=== PATIENT | female | born 1990 | race Two or more races ===

== ENCOUNTER 2017-02-05 14:29 | Emergency (ER) | payer OTHER ==
[~2017-02-05] VITALS: Ht 170.2 cm; Wt 90.7 kg
--- NOTE | ~2017-02-05 | CT2 ---
[facility] A Service of [facility] & [facility] / [facility] RADIOLOGY TEXT RESULTS PATIENT: NICOLE CLANCY LOCATION: SED : 88 UNIT #: [id number] AGE: [address]: COLUMBA KOROMA SEX: F ORDER DR: [id number] [address] [id number] MR#: [id number] Acc #: [id number] NAME: NICOLE CLANCY. : 1990 SEX: F STUDY DATE/TIME: 02/05/2017 15:59 UNIT: SED ROOM: STUDY DESCRIPTION: CT Abd and Pelv W Cont Attending Physician: (Marley) Columba Koroma Ordering Physician: Rose) Columba Koroma Primary Care Physician: No Primary Care Physician MEDICAL IMAGING REPORT This report is preliminary unless electronic signature is present. EXAM CT abdomen and pelvis with IV contrast. COMPARISON April 08, 2010 INDICATIONS 26-year-old female with diffuse lower abdominal pain and nausea for [address] imaging of the abdomen and pelvis was performed after IV administration of 100 mL of Isovue-370. Coronal and sagittal reformats were constructed. This CT exam was performed with one or more of the following radiation dose reduction techniques: automatic exposure control, adjustment of mA and/or kV according to patient size, and iterative reconstruction. Small fat-containing umbilical hernia. No acute fractures or suspicious osseous lesions. Small posterior disc protrusions are noted at all levels of the lumbar spine with sparing of L1-L2. No acute findings in the lower chest. The gallbladder is contracted, but otherwise unremarkable. The liver, pancreas, spleen, adrenal glands and left kidney are unremarkable. There are nonobstructive calculi in the inferior pole of the right kidney. No ureteral calculus. No hydronephrosis or hydroureter. Expected position of intrauterine contraceptive device. Rim-enhancing structure in the left ovary measuring 1.5 cm is most consistent with a corpus luteum cyst. There is trace free fluid in the pelvis, likely physiologic. No pneumoperitoneum. Abdominal aorta is normal course and caliber, with patency of its main branches. No evidence of venous thrombosis. No evidence of bowel obstruction. There is a structure in the posterior aspect of the cecum which may represent a very small appendix or a small STS. [facility] A Service of [facility] RADIOLOGY TEXT RESULTS PATIENT: NICOLE CLANCY LOCATION: [facility] : 89 UNIT #: [id number] AGE: [address]: COLUMBA KOROMA SEX: F ORDER DR: diverticulum. There is no evidence of associated acute inflammatory change. No adenopathy. IMPRESSION 1. The urinary bladder wall appears mildly diffusely thickened which may be a product of under-distension. Correlation to exclude signs of an acute cystitis recommended. 2. Trace amount of free fluid in the pelvis likely physiologic. 3. Findings most consistent with a corpus luteum cyst in the left ovary. 4. Expected position of intrauterine contraceptive device. 5. The appendix is not definitely visualized. There are no secondary findings to suggest an acute appendicitis. 6. Nonobstructive right renal calculi. Dictated by... Leon Epperson M.D. THIS IS AN ELECTRONICALLY VERIFIED REPORT Leon Epperson M.D. at 02/10/2017 7:58 AM ROLANDO/[place] TD: 02/05/2017 22:20 JOB #: [id number] MEDICAL IMAGING REPORT Page 1 of 1
[~2017-02-05 14:29] MED LIST: ATARAX PO; BIRTH CONTROL PILL PO; BUSPAR15 M2 PO; DELTASONE20 MG PO; DOXYCYCLINE150 MG PO; KETOPROFEN PO; LORTAB 5/500 TA1 TA1 PO
[2017-02-05 15:05] LABS: URINE SOURCE CLEAN CATCH
[2017-02-05 15:08] LABS: URINE APPEARANCE CLEAR; URINE BILIRUBIN NEG (NEG); URINE BLOOD TRACE-INTACT (NEG); URINE COLOR YELLOW; URINE GLUCOSE NEG (NORM); URINE KETONE NEG (NEG); URINE LEUKOCYTE ESTERASE NEG (NEG); URINE NITRATE NEG (NEG); URINE PH 5.5 (5-8); URINE PROTEIN NEG (NEG); URINE SPECIFIC GRAVITY >=1.030 (1.003-1.035); URINE UROBILINOGEN 0.2 MG/DL (NORM)
[2017-02-05 15:09] LABS: MICRO INDICATED? YES
[2017-02-05 15:11] LABS: BASOPHIL% 0.3 % (0-2.5); CULTURE INDICATED? YES; EOSINOPHIL# 0.1 X10e3 (0-0.7); EOSINOPHIL% 1.3 % (0.0-7.0); HEMATOCRIT 40.1 % (35.0-45.0); HEMOGLOBIN 13.3 gm/dL (12.0-16.0); LYMPHOCYTE# 2.2 X10e3 (1.0-3.5); LYMPHOCYTE% 33.6 % (17.0-45.0); MEAN CELL VOLUME 86.1 FL (83-96); MEAN CORPUSCULAR HEMOGLOBIN 28.6 PG (28-34); MEAN CORPUSCULAR HGB CONC 33.2 g/dL (30-36); MEAN PLATELET VOLUME 8.2 FL (6.5-11.5); MONOCYTE# 0.8 X10e3 (0-1.0); MONOCYTE% 11.6 % (3.0-12.0); NEUTROPHIL# 3.5 X10e3 (1.5-7.1); NEUTROPHIL% 53.2 % (40-75); PLATELET COUNT 176 X10e3 (140-420); RED BLOOD COUNT 4.66 X10e (3.90-5.30); RED CELL DISTRIBUTION WIDTH 12.7 % (11.0-15.5); URINE BACTERIA 1+ (NEG); URINE SQUAMOUS EPITHELIAL CELL MODERATE /[HPF]; WHITE BLOOD COUNT 6.6 X10e3 (4.0-10.5)
[2017-02-05 15:12] LABS: DIFF IND NO
[2017-02-05 15:27] LABS: ALBUMIN SERUM 3.8 g/dL (3.5-5.0); BILIRUBIN, DIRECT 0.1 mg/dL (0.0-0.2); BILIRUBIN,INDIRECT 0.8 mg/dL (0.0-0.9); BILIRUBIN,TOTAL 0.9 mg/dL (0.2-2.0); BUN/CREATININE RATIO 22.5; CALCIUM SERUM 8.7 mg/dL (8.4-10.2); CREATININE SERUM 0.8 mg/dL (0.6-1.4); GLOM FILT RATE Estimated 101.1 mL/min (>60); POTASSIUM 3.6 mmol/L (3.5-5.1); PROTEIN TOTAL SERUM 7.1 g/dL (6.0-8.3)
== END 2017-02-05 17:38 | disposition home or self-care (01) ==
LOC: SED 14:29
PROVIDERS: Physician Assistant
DX: N30.00 Acute cystitis without hematuria (principal)
CPT/HCPCS: 36415; 74177; 80048; 80076; 81003; 83690; 84703; 85025; 87086; 96361; 96374; 99284; J2405; Q9967